=== PATIENT | female | born 1980 | race Caucasian/White ===

== ENCOUNTER → 2022-06-07 | Outpatient (CLI) | payer OTHER ==
[~2022-06-07] MED LIST: AZIT250 PO; CEPH500 PO; CLIN300 PO; CRUTCH3 USE; CYCL10 PO; DICL250 PO; DOCU100 PO; DOXY100 PO; HYDACE5 PO; HYDGUAL120 PO; IBUP400 PO; IBUP800; IBUP800 PO; MECL25 PO; NEOPOLHYDS OT; Norco 5-325 Ta1 EACH PO; ONDA4 PO; ORACON PO; OXYACE5T PO; PHENA200 PO; PROCODE120 PO; PROM25 PO; RXCEPH500 PO; RXHYDACE PO; RXPHEN200 PO; SULTRIDS PO; TRAZ100 PO
== END | disposition home or self-care (01) ==
LOC: LAB SHORT 15:48 → PLD 15:48
DX: D48.5 Neoplasm of uncertain behavior of skin (principal)
CPT/HCPCS: 88304

== ENCOUNTER → 2023-01-23 | Outpatient (CLI) | payer OTHER | LOC: LAB SHORT 15:19 → PLD 15:19 → LAB 15:19 | DX: L70.0 Acne vulgaris (principal) | CPT/HCPCS: 88304; 88305 ==